=== PATIENT | male | born 1955 | race Caucasian/White ===

== ENCOUNTER 2019-09-10 16:27 | Emergency (ER) | payer OTHER ==
[~2019-09-10] VITALS: Ht 175.3 cm; Wt 94.8 kg
[2019-09-10 16:34] VITALS: BP 177/112
--- NOTE | 2019-09-10 16:40 | NUR ---
PT TO BED 7 WITH STEADY GAIT
--- NOTE | 2019-09-10 16:49 | NUR ---
63 Y/O C/O HIGH BLOOD PRESSURE FOUND AT [facility]CTORS APPPOINTMENT TODAY. PT STATES HE HAS BEEN OFF OF HIS B/P MEDICATION X2 WEEKS. PT CANT REMEMBER THE NAME OF THE MEDICATION. PT DENIES DIZZINESS OR PAIN. PT ON MONITOR, VSS. PT POSITIONED FOR COMFORT. ALLERGIES: PENICILLINS
--- NOTE | 2019-09-10 17:01 | NUR ---
PT B/P RECHECKED, CONTINUES TO GO DOWN. B/P 156/101 FROM 164/102. PT CANNOT REMEMBER HOW MUCH HIS B/P WAS AT THE [facility]CT[facility] OFFICE PRIOR TO HIS VISIT TODAY.
--- NOTE | 2019-09-10 17:24 | NUR ---
DR ALCARAZ EXAMINING PATIENT AT BEDSIDE.
[2019-09-10] MEDS ORDERED: LISINOPRIL 20 MG TAB PO ONE (17:40)
[2019-09-10 17:48] VITALS: BP 158/111
--- NOTE | 2019-09-10 17:48 | NUR ---
Patient discharged with v/s stable. Written and verbal after care instructions given and explained. Patient alert, oriented and verbalized understanding of instructions. Ambulatory with steady gait. All questions addressed prior to discharge. ID band removed. Patient advised to follow up with PMD. Rx of LISINOPRIL given. Patient educated on indication of medication including possible reaction and side effects. Opportunity to ask questions provided and answered. PT GIVEN RECOMENDATION FROM MD FOR A FOLLOW UP PHYSICIAN FOR BLOOD PRESSURE MANAGEMENT.
== END 2019-09-10 17:48 | disposition home or self-care (01) ==
LOC: MED 16:27
DX: I10 Essential (primary) hypertension (principal); E78.5 Hyperlipidemia, unspecified; Z88.0 Allergy status to penicillin
CPT/HCPCS: 82948; 99283

== ENCOUNTER 2022-04-10 21:40 | Emergency (ER) | payer OTHER ==
[~2022-04-10] VITALS: Ht 170.2 cm; Wt 95.3 kg
[2022-04-10 21:40] VITALS: BP 135/84
--- NOTE | 2022-04-10 21:43 | NUR ---
AMY OATES TAKEN TO BED #8
--- NOTE | 2022-04-10 22:44 | NUR ---
Dr. Staley examining patient.
--- NOTE | 2022-04-10 22:45 | NUR ---
66YR OLD MALE BIB EMS C/O ALOC AFTER PM MEDS/SLEEPING AID. PT IS A&OX4. IS A RESIDENT AT [facility]. DENIES CP OR SOB. PT STATES HE IS TIRED. DENIES ANY PAIN. 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 SIDE RAILS UP X2 BED AT LOWEST POSITION.
--- NOTE | 2022-04-10 23:21 | NUR ---
PT TAKEN TO CT
--- NOTE | 2022-04-10 23:38 | NUR ---
PT BACK FROM CT
[2022-04-10 23:48] LABS: BASOPHILS % (AUTO) 0.3 % (0.0-2.0); EOSINOPHILS # (AUTO) 0.2 K/uL (0-0.4); EOSINOPHILS % (AUTO) 2.6 % (0.0-4.0); HEMATOCRIT 41.9 % (36-52); HEMOGLOBIN 14.1 g/dL (12.0-18.0); LYMPHOCYTES # (AUTO) 1.9 K/uL (2.0-11.5); LYMPHOCYTES % (AUTO) 23.9 % (20.5-51.1); MEAN CORPUSCULAR HEMOGLOBIN 30 pg (27-31); MEAN CORPUSCULAR HGB CONC 34 g/dL (33-37); MEAN CORPUSCULAR VOLUME 87.9 fL (80-94); MONOCYTES # (AUTO) 0.9 K/uL (0.8-1.0); NEUTROPHILS % (AUTO) 62.2 % (42.2-75.2); PLATELET COUNT (AUTO) 169 K/uL (140-450); RED BLOOD CELL COUNT(AUTO) 4.77 MIL/uL (4.20-6.10); WHITE BLOOD COUNT (AUTO) 8.1 K/uL (4.8-10.8)
[2022-04-10] MEDS: NACL 0.9% 1,000 ML IV ONE (23:56)
[2022-04-11 00:29] LABS: ALBUMIN 3.5 g/dL (3.4-5.0); ANION GAP 11.8 (8-16); ASPARTATE AMINOTRANSFERASE 25 U/L (15-37); CARBON DIOXIDE 31.4 mmol/L (21-32); CHLORIDE 105 mmol/L (98-107); CREATININE 1.3 mg/dL (0.6-1.3); GFR ARICAN-AMERICAN 71 mL/min (>90); GLUCOSE 90 mg/dL (74-106); POTASSIUM 3.2 mmol/L (3.5-5.1); SODIUM SERUM 145 mmol/L (136-145); TOTAL BILIRUBIN 0.5 mg/dL (0.0-1.0); UREA NITROGEN, BLOOD 18 mg/dL (7-18)
[2022-04-11 00:32] LABS: ACETAMINOPHEN < 0.5 ug/ml (10-30); SALICYLATE 0.6 mg/dL (2.8-20.0)
--- NOTE | 2022-04-11 00:41 | NUR ---
COVID SWAB COLLECTED AND SENT TO LAB
[2022-04-11 00:56] LABS: BARBITURATE, URINE NEGATIVE ng/ml (NEG <=200); BENZODIAZEPINE, URINE NEGATIVE ng/mL (NEG <=200); CANNABINOID, URINE NEGATIVE ng/mL (NEG <=50); COCAINE, URINE NEGATIVE ng/mL (NEG <=300); OPIATE, URINE NEGATIVE ng/mL (NEG <=2000); PHENCYCLIDINE SCREEN,URINE NEGATIVE ng/mL (NEG <=25)
[2022-04-11] MEDS ORDERED: POTASSIUM CHLORIDE 10 MEQ TABER PO ONE (02:08)
[2022-04-11] MEDS: POTASSIUM CHLORIDE 10 MEQ TABER PO ONE (02:14)
--- NOTE | 2022-04-11 02:30 | NUR ---
PT HAS BEEN DISPO CALLED [facility], NO ANSWER FROM ANY STAFF MEMBER. PT SISTER CALLED WOULD BE ABLE TO LACTATION COORDINATOR PT AT 6A IF NO TRANSPORTION AVAIL AT THAT TIME
[2022-04-11] MEDS: diphenhydrAMINE 50 MG/ML VIAL IVP ONE (03:08)
[2022-04-11] MEDS: LORazepam 2 MG/ML VIAL IVP ONE (03:10)
--- NOTE | 2022-04-11 03:19 | NUR ---
PT ON BEDSIDE DIRECTOR OF PHYSICAL THERAPY PT IS SLEEPING RESP EVEN AND UNLABORED. HOB ELEVATED SIDE RAILS UP X2 BED AT LOWEST POSITION
[2022-04-11 05:48] VITALS: BP 162/89
--- NOTE | 2022-04-11 05:48 | NUR ---
Patient discharged with v/s stable. Written and verbal after care instructions given and explained. Patient verbalized understanding. Ambulatory with to senior care. All questions addressed prior to discharge. Advised to follow up with PMD.
[2022-04-11] MEDS ORDERED: LEVE500T9 PO (09:34)
[2022-04-11] MEDS ORDERED: HYDR-4004 PO (09:34)
[2022-04-11] MEDS ORDERED: RISP0.5T3 PO (09:34)
[2022-04-11] MEDS ORDERED: CARV6.25 PO (09:34)
[2022-04-11] MEDS ORDERED: DIVA500T1 PO (09:34)
[2022-04-11] MEDS ORDERED: SERT50TA PO (09:34)
[2022-04-11] MEDS ORDERED: MIRT-91 PO (09:34)
[2022-04-11] MEDS ORDERED: LAM25 PO (09:34)
[2022-04-11] MEDS ORDERED: DIVA250E1 PO (09:34)
[2022-04-11] MEDS ORDERED: CLON0.1T16 PO (09:34)
[2022-04-11] MEDS ORDERED: ATOR40TA PO (09:34)
[2022-04-11] MEDS ORDERED: AMLO10TA PO (09:34)
[2022-04-13] MEDS ORDERED: ASPI-1856 PO (11:42)
== END 2022-04-11 05:48 | disposition home or self-care (01) ==
LOC: MED 21:40
DX: R41.82 Altered mental status, unspecified (principal); Z20.822 Contact with and (suspected) exposure to COVID-19; E87.6 Hypokalemia; I10 Essential (primary) hypertension; F03.90 Unspecified dementia, unspecified severity, without behavioral disturbance, psychotic disturbance, mood disturbance, and anxiety; Z88.0 Allergy status to penicillin; Z86.73 Personal history of transient ischemic attack (TIA), and cerebral infarction without residual deficits
CPT/HCPCS: 36415; 70450; 71045; 80053; 80305; 82140; 84484; 85025; 87426; 93005; 96361; 96374; 96375; 99285; G0480; G0482; J1200; J2060; J7030

== ENCOUNTER 2022-07-15 09:14 | Inpatient (IN) | payer OTHER ==
[~2022-07-15] VITALS: Ht 175.3 cm; Wt 83.9 kg
[~2022-07-15 09:14] MED LIST: AMLO10TA PO; ASPI-1856 PO; ATOR40TA PO; DIVA250E1 PO; HYDR-4004 PO; LAM25 PO; LEVE500T9 PO; MIRT-91 PO; RISP0.5T3 PO; SERT50TA PO
[2022-07-15 09:18] VITALS: BP 139/77
--- NOTE | 2022-07-15 09:27 | NUR ---
pt biba stand pivot to bed. placed on gown and monitor. rails up.
[2022-07-15 10:29] LABS: BASOPHILS # (AUTO) 0.1 K/uL (0.00-0.22); BASOPHILS % (AUTO) 0.7 % (0.0-2.0); EOSINOPHILS # (AUTO) 0.2 K/uL (0-0.4); EOSINOPHILS % (AUTO) 2.1 % (0.0-4.0); HEMATOCRIT 39.2 % (36-52); HEMOGLOBIN 13.2 g/dL (12.0-18.0); LYMPHOCYTES # (AUTO) 1.7 K/uL (2.0-11.5); LYMPHOCYTES % (AUTO) 21.7 % (20.5-51.1); MEAN CORPUSCULAR HEMOGLOBIN 30 pg (27-31); MEAN CORPUSCULAR HGB CONC 34 g/dL (33-37); MEAN CORPUSCULAR VOLUME 89.5 fL (80-94); MONOCYTES # (AUTO) 0.6 K/uL (0.8-1.0); MONOCYTES % (AUTO) 7.7 % (1.7-9.3); NEUTROPHILS # (AUTO) 5.2 K/uL (1.8-7.7); NEUTROPHILS % (AUTO) 67.8 % (42.2-75.2); PLATELET COUNT (AUTO) 210 K/uL (140-450); RED BLOOD CELL COUNT(AUTO) 4.38 MIL/uL (4.20-6.10); RED CELL DISTRIBUTION WIDTH 14.1 % (11.6-13.7); WHITE BLOOD COUNT (AUTO) 7.7 K/uL (4.8-10.8)
[2022-07-15 10:58] LABS: PROTHROMBIN TIME 10.8 secs (10.8-13.4)
[2022-07-15 11:00] LABS: ALBUMIN 3.7 g/dL (3.4-5.0); ANION GAP 11.5 (8-16); CARBON DIOXIDE 31.9 mmol/L (21-32); CREATININE 1.2 mg/dL (0.6-1.3); POTASSIUM 3.4 mmol/L (3.5-5.1); TOTAL BILIRUBIN 0.7 mg/dL (0.0-1.0)
[2022-07-15 11:09] LABS: VALPROIC ACID < 3 ug/ml (50-100)
--- NOTE | 2022-07-15 11:33 | NUR ---
URINE AND SWABS HANDED TO LAB
[2022-07-15] MEDS ORDERED: CLON0.1T16 PO (12:12)
[2022-07-15] MEDS ORDERED: CARV6.25 PO (12:12)
[2022-07-15 12:18] LABS: APPEARANCE,URINE CLEAR (CLEAR); BILIRUBIN,URINE NEGATIVE (NEGATIVE); BLOOD, URINE NEGATIVE (NEGATIVE); COLOR,URINE YELLOW (YELLOW); LEUKOCYTE ESTERASE ,URINE NEGATIVE (NEGATIVE); NITRITE, URINE NEGATIVE (NEGATIVE); PH,URINE 7.5 (5.0-9.0); UGLUCOSE NEGATIVE (NEGATIVE)
[2022-07-15] MEDS ORDERED: ASPIRIN 81 MG TAB.CHEW PO ONE (12:20)
[2022-07-15 12:57] LABS: RBC,URINE 0-5 /HPF (0-5); WBC,URINE 0-5 /HPF (0-5)
[2022-07-15] MEDS ORDERED: LORazepam 2 MG/ML VIAL IM/IVP PRN (16:50)
--- NOTE | 2022-07-15 16:51 | NUR ---
DR HEBERT AT BEDSIDE FOR EVAL
[2022-07-15] MEDS ORDERED: LORazepam 2 MG/ML VIAL ONE (16:57)
--- NOTE | 2022-07-15 17:03 | NUR ---
PT NOTED TO BE AGITATED, TRYING TO GET OUT OF BED. REMOVING CLOTHING AND PULLING ON MONITORING DEVICES.
--- NOTE | 2022-07-15 19:17 | NUR ---
Pt report given to GIANNA BURR. Transfer of care at this time.
--- NOTE | 2022-07-15 19:44 | NUR ---
pt is resting, no respiratory ditress noted, alert and oriented x 4.
[2022-07-15] MEDS ORDERED: LORazepam 2 MG/ML VIAL IVP PRN (21:15)
[2022-07-15] MEDS ORDERED: NACL 0.9% 1,000 ML IV SCH (21:15)
--- NOTE | 2022-07-15 22:05 | NUR ---
attempted to call admting dr. medina and was told dr. duenas and he wasnt available.
--- NOTE | 2022-07-16 05:36 | NUR ---
attempted atuling dr. jacob in lieu dr medina in regards of continuing home meds especially Seizure medictaions.
--- NOTE | 2022-07-16 07:20 | NUR ---
Received report from AMINAH Vidal. Assumed care at this time.
[2022-07-16 07:56] LABS: BASOPHILS % (AUTO) 0.3 % (0.0-2.0); EOSINOPHILS # (AUTO) 0.2 K/uL (0-0.4); EOSINOPHILS % (AUTO) 2.3 % (0.0-4.0); HEMATOCRIT 42.1 % (36-52); HEMOGLOBIN 14.2 g/dL (12.0-18.0); LYMPHOCYTES # (AUTO) 1.3 K/uL (2.0-11.5); LYMPHOCYTES % (AUTO) 16.7 % (20.5-51.1); MEAN CORPUSCULAR HEMOGLOBIN 30 pg (27-31); MEAN CORPUSCULAR HGB CONC 34 g/dL (33-37); MEAN CORPUSCULAR VOLUME 89.4 fL (80-94); MONOCYTES # (AUTO) 0.6 K/uL (0.8-1.0); MONOCYTES % (AUTO) 7.4 % (1.7-9.3); NEUTROPHILS # (AUTO) 5.6 K/uL (1.8-7.7); NEUTROPHILS % (AUTO) 73.3 % (42.2-75.2); PLATELET COUNT (AUTO) 212 K/uL (140-450); RED BLOOD CELL COUNT(AUTO) 4.72 MIL/uL (4.20-6.10); RED CELL DISTRIBUTION WIDTH 14.2 % (11.6-13.7); WHITE BLOOD COUNT (AUTO) 7.6 K/uL (4.8-10.8)
[2022-07-16] MEDS ORDERED: DIVA500T1 PO (08:17)
[2022-07-16] MEDS: lamoTRIgine 25 MG TAB PO SCH ×2 (08:36→17:15)
--- NOTE | 2022-07-16 08:40 | NUR ---
Pt sitting up in bed, on bedside monitor, no complaints of pain, pt reported eating 100% of breakfast. All needs met at this time.
[2022-07-16] MEDS: DIVALPROEX 250 MG TABEC PO SCH ×3 (08:44→17:15)
[2022-07-16] MEDS ORDERED: carvediloL 6.25 MG TAB PO SCH (09:00)
[2022-07-16] MEDS: amLODIPine 5 MG TAB PO SCH (09:29)
[2022-07-16] MEDS: lisinopriL 10 MG TAB PO SCH (09:30)
[2022-07-16] MEDS: SERTRALINE 50 MG TAB PO SCH (09:31)
[2022-07-16] MEDS: hydroCHLOROthiazide 25 MG TAB PO SCH (09:41)
--- NOTE | 2022-07-16 12:05 | NUR ---
Pt restless, continuously getting out of bed. Pt pulled out IV, no active bleeding noted.
--- NOTE | 2022-07-16 12:15 | NUR ---
DC PLANNING SW OUTREACHED TO PATIENTS EMERGENCY CONTACT REY DAVILA TO GATHER COLLATERAL INFORMATION. REY REPORTS SHE IS DPOA AND EMERGENCY CONTACT FOR PATIENT. REY REPORTS PATIENT HAS BEEN RESIDENT OF [facility] SINCE JUL 02. PATIENT IS AMBULATORY WITH DME ASSISTANCE; FWW AND BATH CHAIR AND COMPLETES ADL'S W/ MINIMAL ASSISTANCE. PATIENT DOES REQUIRE PROMPTS A REMINDER. PT IS ABLE TO MAKE HIS NEEDS KNOWN. HOWEVER IS REPORTED TO BE CONFUSED AT BASELINE. REY REPORTS PATIENT SUFFERED TWO STROKES; JUL 26 & JUL 28. PATIENT HAD A SEIZURE IN November WHICH SHE REPORTS OBSERVING A RAPID DECLINE IN PT'S HEALTH. REY REPORTS PATIENT HAS MENTAL HEALTH HX HOWEVER WAS UNABLE TO RECALL FORMAL DX. REY REPORTS PATIENT IS ON MOOD STABILIZERS AND WHEN NOT CONSISTENTLY TAKEN, PATIENT BECOMES VERBALLY AND PHYSICALLY AGGRESSIVE WHICH HAS CAUSED ISSUES WITH ASSISTED LIVING FACILITY. REY REPORTS BX HAVE DECREASED SINCE PT HAS BEEN COMPLIANT WITH MEDICATIONS. PT IS REPORTED TO MEET WITH PSYCHIATRIST 1X WEEKLY, VIA ZOOM. REY BERMAN, DC PLAN IS FOR PATIENT TO RETURN TO [facility] WHEN MEDICALLY STABLE. Addendum: 07/17/22 at 0912 by Latrell DOLAN Amended: Links added. Addendum: 07/17/22 at 1345 by Latrell DOLAN OUTREACHED TO PTS SISTERREY, TO NOTIFY HER PT IS DC. REY REPORTS SHE IS UNABLE TO AMMONIA REFRIGERATION TECHNICIAN PT. OUTREACHED TO [facility]ULT[facility] WHO REPORTS THEY DO NOT PROVIDE TRANSPORTATION. FAXED OVER [facility] TRANSPORTATION REQUEST FORM TO [facility] [phone] Addendum: 07/17/22 at 1625 by Latrell Stubbs SS FIELDED CALL FROM [facility] TRANSPORT, TRANSPORTATION BEING ARRANGED WITH [facility] [phone], AMMONIA REFRIGERATION TECHNICIAN TIME 4:30PM. AUTH [id number]. ENDORSED TO PT NURSE.
--- NOTE | 2022-07-16 14:26 | NUR ---
Patient will be admitted to care of Dr. Prado. Admited to TELE. Will go to room 110B. Belongings list completed. Report to AMINAH Mathis.
--- NOTE | 2022-07-16 14:30 | NUR ---
RECEIVED BEDSIDE REPORT FROM RIAN GARRISON RN, FOR CONTINUITY OF CARE. PT A/OX2, PORSCHE. ROOM AIR. 20G R HAND SALINE LOCK. SB ON MONITOR. ABD SOFT AND NONTENDER. STRENGTH WNL. STANDARD PRECAUTION. CALL LIGHT WITHIN REACH. BED LOCKED AND IN LOWEST POSITION.
[2022-07-16 16:00] VITALS: BP 124/72
--- NOTE | 2022-07-16 19:20 | NUR ---
ENDORSED BEDSIDE REPORT TO AMINAH SHAH, FOR CONTINUITY OF CARE.
[2022-07-16 20:00] VITALS: BP 116/78
[2022-07-17] VITALS: BP 112/70
[2022-07-17 04:00] VITALS: BP 147/72
--- NOTE | 2022-07-17 06:54 | NUR ---
PATIENT HAS BEEN SCREENED AND CATEGORIZED LOW NUTRITION RISK. PATIENT WILL BE SEEN WITHIN 7 DAYS OF ADMISSION. 07/22/[address]
[2022-07-17 07:39] VITALS: BP 130/72
--- NOTE | 2022-07-17 07:42 | NUR ---
ENDORSED TO DAY RN FOR CONTINUITY OF CARE. PT IS STABLE.
[2022-07-17] MEDS: amLODIPine 5 MG TAB PO SCH (08:01)
[2022-07-17] MEDS: DIVALPROEX 250 MG TABEC PO SCH ×3 (08:01→16:32)
[2022-07-17] MEDS: lamoTRIgine 25 MG TAB PO SCH ×2 (08:02→16:32)
[2022-07-17] MEDS: lisinopriL 10 MG TAB PO SCH (08:03)
[2022-07-17] MEDS: hydroCHLOROthiazide 25 MG TAB PO SCH (08:03)
[2022-07-17] MEDS: SERTRALINE 50 MG TAB PO SCH (08:05)
--- NOTE | 2022-07-17 08:45 | NUR ---
NURSES NOTE PATIENT RECEIVED AT BED SIDE , A/OX2 , VSS , SINUS DAVID CARDIA ON MONITOR , ON CARDIAC DIET SKIN INTACT , LOWER EXTREMITY WEAKNESS , NO COMPLAIN AT THIS TIME , WILL CONTINUE OBSERVE3 .
[2022-07-17] MEDS ORDERED: ECOTRIN 81 MG TABEC PO SCH (09:00)
[2022-07-17] MEDS ORDERED: ATORVASTATIN 20 MG TAB PO SCH (09:00)
[2022-07-17] MEDS ORDERED: LISI10TA30 PO (10:23)
[2022-07-17 10:42] VITALS: BP 130/72
[2022-07-17 12:25] VITALS: BP 125/79
--- NOTE | 2022-07-17 12:44 | NUR ---
taran note i call patient sister on her phone # [phone] she dont answer i left her massage then i call the [facility] on # [phone] , to give report , they don,t answer i left massage for then to call me on # [phone] , waiting to call me back
--- NOTE | 2022-07-17 13:43 | NUR ---
patient waiting for his sister to picked him up and he can discharge to facility
--- NOTE | 2022-07-17 16:04 | NUR ---
nurses note : I CALL JEANNIE SCHULTZ TO GIVE A REPORT , NEAL ONE OF STUFF SHE TOOK REPOT WAITING FOR TRANSPORTATION TO PICKED HIM UP .
[2022-07-17 16:26] VITALS: BP 127/82
--- NOTE | 2022-07-17 16:27 | NUR ---
NURSES NOTE : CASE MANGRIAN CALL ME NOW SHE SAID TRANSPORTATION IN THIER WAY TO PLUMBING SERVICE TECHNICIAN PATIENT VSS , NO COMPLAIN , IV , ARM BAND AND MONITOR REMOVED , WAITING FOR TRANSPORTATION .
--- NOTE | 2022-07-17 19:29 | NUR ---
PATIENT PICKED NOW , BY TRANSPORTATION .
== END 2022-07-17 19:30 | disposition home or self-care (01) | DRG 100 ==
LOC: MED 09:14 → MTU 12:22
PROVIDERS: ADMIT Family Medicine; ATTEND Family Medicine
DX: G40.909 Epilepsy, unspecified, not intractable, without status epilepticus (principal); I21.A1 Myocardial infarction type 2; E87.6 Hypokalemia; Z20.822 Contact with and (suspected) exposure to COVID-19; I10 Essential (primary) hypertension; E78.5 Hyperlipidemia, unspecified; F32.A Depression, unspecified; F03.90 Unspecified dementia, unspecified severity, without behavioral disturbance, psychotic disturbance, mood disturbance, and anxiety; Z86.73 Personal history of transient ischemic attack (TIA), and cerebral infarction without residual deficits; Z88.0 Allergy status to penicillin
CPT/HCPCS: 36415; 71045; 80053; 80173; 81001; 83880; 84484; 85025; 85610; 85730; 87081; 93005; 96374; 97116; 97163-GP; 99285; J1644; J2060; Q0092